=== PATIENT | female | born 1950 | race Caucasian/White ===

== ENCOUNTER → 2016-04-16 16:39 | Outpatient (CLI) | payer OTHER ==
[2013-09-22 06:19] VITALS: BMI 33.7
[~2016-04-16 16:39] MED LIST: CELEXA40 MG PO; COZAAR25 MG PO; CYMBALTA30 MG PO; HYDROCODONE-APA1 TAB PO; MOBIC7.5 MG PO; OXYCODONE HCL10 MG PO
== END | disposition home or self-care (01) ==
LOC: D.MAMMO 09:00
DX: Z85.3 Personal history of malignant neoplasm of breast (principal); Z12.31 Encounter for screening mammogram for malignant neoplasm of breast

== ENCOUNTER → 2016-05-29 16:25 | Outpatient (CLI) | payer OTHER ==
[2013-09-22 06:19] VITALS: BMI 33.7
== END | disposition home or self-care (01) ==
LOC: D.MAMMO 05-22 13:30
DX: R92.8 Other abnormal and inconclusive findings on diagnostic imaging of breast (principal)

== ENCOUNTER 2016-06-28 10:24 | Inpatient (IN) | payer OTHER ==
[~2016-06-28] VITALS: Ht 160 cm; Wt 54.4 kg
[2016-06-28] VITALS (14 sets, daily range): BP systolic 83–119; BP diastolic 46–65; BMI 21.3
--- NOTE | 2016-06-28 10:40 | NUR ---
PT ARRIVED ON UNIT VIA WHEELCHAIR WITH SON (MONICA). PT WAS A DIRECT ADMIT FROM DR YIN'S OFFICE FOR LOW H&H. PIVS SITED. ORDERS IN COMPUTER. ASSESSMENTED TO BE DOCUMENTED ON FLOWSHEET. PT HAS COMPLAINTS OF SLIGHT WEAKNESS BUT DENIES PAIN AT THIS TIME. NORMAL SINUS ON MONITOR AND BP STABLE. WILL CONTINUE TO MONITOR CLOSELY.
[2016-06-28] MEDS ORDERED: MECLIZINE HCL25 MG PO (11:02)
[2016-06-28 11:20] LABS: BASOPHILS 0.4 % (0-2); EOSINOPHILS 1.6 % (0-7); IMMATURE GRANULOCYTES 0.8 % (0-5); MCH 33.3 pg (26.0-34.0); MCHC 31.7 g/dL (31.0-37.0); MCV 105.2 fL (80.0-100.0); MONOCYTES 16.8 % (2-11); NEUTROPHILS 63.4 % (40-80); RDW 19.7 % (11.5-14.5); WBC 7.3 10x3/uL (4.8-10.8)
[2016-06-28 11:25] LABS: PLATELET COUNT 417 10x3/uL (130-400)
[2016-06-28 11:27] LABS: HEMATOCRIT 16.1 % (36.0-48.0); HEMOGLOBIN 5.1 g/dL (12-16); RBC 1.53 10x6/uL (4.00-5.40)
[2016-06-28 11:30] LABS: APTT 22.8 SECONDS (22.8-39.4); INR 0.96 (0.85-1.17); PROTIME 12.6 SECONDS (11.6-15.0)
[2016-06-28 11:46] LABS: ALBUMIN 2.9 g/dL (3.4-5.0); ANION GAP 10.6 mmol/L (8-16); BILIRUBIN - TOTAL 0.36 mg/dL (0.2-1.3); CALCIUM 8.3 mg/dL (8.5-10.1); CARBON DIOXIDE 26.3 mmol/L (21.0-32.0); POTASSIUM - SERUM 3.9 mmol/L (3.5-5.1); PROTEIN - SERUM 6.1 g/dL (6.4-8.2)
--- NOTE | 2016-06-28 12:30 | NUR ---
CONTINUING POC PER NEW ORDERS. PT WILL RECEIVE 3 UNITS OF PRBC TODAY PER ORDER. BLOOD CONSENT IN CHART
--- NOTE | 2016-06-28 14:00 | NUR ---
REARDON INSERTED PER ORDER, YELLOW URINE NOTED AND DRAINING TO GRAVITY. SCDS ON LOWER EXTREMITIES BILAT. BP LOW BUT STABLE WITH BLOOD TRANSFUSING.
[2016-06-28 14:07] LABS: APPEARANCE CLEAR (CLEAR); BILIRUBIN NEGATIVE (NEGATIVE); COLOR STRAW (YELLOW); GLUCOSE NEGATIVE (NEGATIVE); KETONE NEGATIVE (NEGATIVE); LEUKOCYTE ESTERASE NEGATIVE (NEGATIVE); NITRITE NEGATIVE (NEGATIVE); PROTEIN NEGATIVE (NEGATIVE); SPECIFIC GRAVITY 1.005 (1.005-1.020); UROBILINOGEN NORMAL (NORMAL)
--- NOTE | 2016-06-28 16:00 | NUR ---
PRBC INFUSING AND PT TOLERATING WELL. MONITORING VITAL SIGNS AND DOCUMENTED ON BLOOD FLOWSHEET. VITAL SIGNS STABLE
--- NOTE | 2016-06-28 18:00 | NUR ---
GI SAW PT AND STATES SHE WILL HAVE EGD WITH TIVA TOMORROW. PROCEDURE, ANESTHESIA, AND BLOOD CONSENTS SIGNED AND IN CHART. CLEAR LIQUID DIET ORDERED FOR DINNER AND NPO AFTER MIDNIGHT. NO CHANGES IN PT STATUS AT THIS TIME. UNIT 2/3 PRBC INFUSING AT THIS TIME. PT TOLERATING WELL.
--- NOTE | 2016-06-28 19:10 | NUR ---
SHIFT ASSESSMENT COMPLETE PER FLOWSHEET, SEE FOR DETAILS. PATIENT A&OX4, RR EVEN AND NONLABORED, ON ROOM AIR. S1S2 NOTED, NSR ON MONITOR. BOWEL SOUNDS ACTIVE X4. REARDON CATH DRAINING CLEAR YELLOW URINE TO GRAVITY. NO EDEMA NOTED, PULSES +2 BILATERAL. PIV IN RFA X2 AND LAC. ALL IVS PATENT, DRESSING C/D/I, AND NO S/S OF INFILTRATION/INFECTION. VSS, WILL MONITOR. 2000- 3RD UNIT OF PRBCS HUNG, WILL MONTIOR.
--- NOTE | 2016-06-28 21:00 | NUR ---
NIGHT MEDS GIVEN. NO VISITORS AT THIS TIME. PATIENT DENIES NEED.
--- NOTE | 2016-06-28 23:00 | NUR ---
REASSESSMENT COMPLETE, NO ACUTE CHANGES, PATIENT RESTING WELL, VSS. SEE FLOWSHEET FOR MORE DETAILS.
[2016-06-29] VITALS (17 sets, daily range): BP systolic 87–123; BP diastolic 47–83; Ht 160 cm; Wt 54.4 kg
--- NOTE | 2016-06-29 01:00 | NUR ---
PATIENT RESTING WITH EYES CLOSED. VSS.
--- NOTE | 2016-06-29 03:00 | NUR ---
REASSESSMENT COMPLETE, NO CHAGNE. VSS.
--- NOTE | 2016-06-29 05:00 | NUR ---
PATIENT SITTING UP IN BED WATCHING TV, DENIES NEED AT THIS TIME.
[2016-06-29 05:19] LABS: BASOPHILS 0.3 % (0-2); EOSINOPHILS 2.8 % (0-7); IMMATURE GRANULOCYTES 0.4 % (0-5); MCH 32.6 pg (26.0-34.0); MEAN PLATELET VOLUME 9.3 fL (7.4-10.4); MONOCYTES 20.3 % (2-11); NEUTROPHILS 54.2 % (40-80); PLATELET COUNT 355 10x3/uL (130-400); RDW 19.2 % (11.5-14.5); WBC 6.8 10x3/uL (4.8-10.8)
[2016-06-29 05:24] LABS: HEMATOCRIT 26.5 % (36.0-48.0); RBC 2.76 10x6/uL (4.00-5.40)
[2016-06-29 05:52] LABS: CARBON DIOXIDE 25.5 mmol/L (21.0-32.0); CHLORIDE - SERUM 104 mmol/L (98-107); POTASSIUM - SERUM 3.7 mmol/L (3.5-5.1); SODIUM 136 mmol/L (136-145)
[2016-06-29 06:12] LABS: % SATURATION 38 % (15-55); IRON 109 ug/dl (35-150); TOTAL IRON BIND CAPACITY 282 ug/dl (260-445); UNSAT IRON BIND CAPACITY 173 ug/dl (150-375)
[2016-06-29 06:32] LABS: CALC OSMOLALITY 269 mosm/kg (275-300); CALCIUM 7.8 mg/dL (8.5-10.1); CREATININE - SERUM 0.8 mg/dL (0.6-1.3); GLUCOSE 83 mg/dL (74-106); THYROID STIMULATING HORMONE 0.73 uIU/mL (0.36-3.74); UREA NITROGEN 9 mg/dL (7-18); eGFR NON AFRICAN AMERICAN 76 mL/min (90-120)
--- NOTE | 2016-06-29 07:00 | NUR ---
REC'D CARE OF PT. A&O X3.
--- NOTE | 2016-06-29 07:30 | NUR ---
NO ACTIVE S/S OF BLEEDING.
--- NOTE | 2016-06-29 08:49 | HP ---
PATIENT: LUPILLO NOLAN MEDICAL RECORD: [id number] ACCOUNT: [id number] LOCATION:[facility] D.[id number] : 51 ADMISSION DATE: 06/28/16 HISTORY AND PHYSICAL EXAMINATION REASON FOR ADMISSION: Dizzy, fatigued, and short of breath. HISTORY OF PRESENT ILLNESS: The patient is a 65-year-old female, alcoholic and smoker who had noticed the last 4 days some dark tarry stools. She felt lightheaded for the last week and actually decreased her losartan because of low blood pressure in the 80s systolic range. She denied nausea, vomiting or abdominal pain. She came to the office with shortness of breath and feels like she had vertigo. On exam in the office, she was pasty white, pressure was 80/64 with a heart rate of 90, and her stool was black, heme-positive. Hemoglobin was 5.1 and hematocrit was 16. She was directly admitted to the ICU for further evaluation. The patient has been compliant with taking her Celexa and Mobic for her arthritis. She also drinks 1 to 1-1/2 bottles of [place] wine at night. She has no history of varices and a previous history of GI bleeding, she states. PAST MEDICAL HISTORY: Alcoholism, bipolar disorder, ____ left knee, depression, hypertension, osteoarthritis of knees, history of psoriasis, history of breast cancer with lumpectomy in left breast for intraductal carcinoma at age 38. CURRENT MEDICATIONS: Mobic 15 mg a day, Celexa 20 mg daily, meclizine 25 mg t.i.d.; losartan 50 mg daily, she discontinued this week. ALLERGIES: LATEX, LISINOPRIL. FAMILY HISTORY: Father at 80, had transitional cell carcinoma of the bladder. Mother from CHF. SOCIAL HISTORY: She is , has 1 son living locally. She admits to smoke 1 pack a day of cigarettes for the last 40 years. She drinks 1-1/2 bottles of wine at night. She says she has not had a drink in 5 days. REVIEW OF SYSTEMS: GENERAL: She has been fatigued and short of breath. HEENT: No recent visual change, sinus congestion, sore throat or hearing difficulty. RESPIRATORY: Shortness of breath on exertion. No cough or sputum production. CARDIAC: No exertional chest pain or palpitations. She has noticed her blood pressure being in the 80-90 systolic range this week. Denies peripheral edema, previous history of chest pain or heart disease. GASTROINTESTINAL: Denies nausea, vomiting or dysphagia. She has had dark stools for 4 days without rectal or abdominal pain. He has past history of fatty liver per ultrasound. No history of varices. MUSCULOSKELETAL: Chronic arthralgias of both knees, right greater than left. NEUROLOGIC: No history of stroke, TIA, vascular headaches or seizures. PSYCHIATRIC: Admits to depression that is well controlled currently. INTEGUMENT: No rash or bruising. PHYSICAL EXAMINATION: VITAL SIGNS: Blood pressure was 80/60, heart rate is 90 and regular. She is afebrile. Her BMI is 21. Her weight is 120.8 pounds, height is 5 feet 3 HISTORY AND PHYSICAL [id number] FÉLIX NOLANBETH JEREL granados, temperature is 97.8. Sat was 90% at rest on room air. GENERAL: The patient is alert and oriented, pale-appearing, in no acute distress. Her eyes are clear. Pale palpebral conjunctivae are noted. Oropharynx unremarkable. NECK: Supple, without bruits or masses. CHEST: Distant breath sounds without wheeze or rales. HEART: Regular rate without MGR. BREASTS: She has had previous lumpectomy in left breast, there is some deformity there. Right breast is unremarkable. ABDOMEN: Soft, nontender throughout. Bowel sounds are active. RECTAL: Reveals grossly black heme-positive stool. No rectal masses. PELVIC: Deferred. EXTREMITIES: No CC&E. LABORATORY DATA: H&H is 5.1 and 16.1 with MCV of 105.2, platelet count is 417,000, white count 7300. BUN and creatinine are 13 and 1.0. GFR is 59. Glucose is 106, calcium 8.3. Liver functions are normal except for low total protein of 6.1. Sodium was 129, potassium is 3.9. Chest x-ray is pending. ASSESSMENT: 1. Symptomatic anemia of gastrointestinal blood loss. 2. Probable upper gastrointestinal bleed. 3. Alcoholism. 4. Nicotine abuse. 5. History of hypertension, currently hypotensive. 6. Osteoarthritis, on NSAIDs, this probably caused her gastrointestinal bleed. 7. Hyponatremia. 8. History of intraductal breast cancer, in remission. PLAN: The patient is admitted to the ICU directly. She will receive 3 units of packed cells when ready. Cardiac monitoring, GI consult, IV Protonix. Further workup pending clinical course. TRANSINT:[id number] Voice Confirmation ID: [id number] DOCUMENT ID: [id number] ADRIANA YIN MD at 0849 CC: [id number] DICTATION DATE: 06/28/16 140 CLUB LICENSEE: 06/28/162042 ADM IN [facility] [address] [place] [address]
--- NOTE | 2016-06-29 09:21 | NUR ---
NS 250 CC HUNG WITH BLOOD TUBING.
--- NOTE | 2016-06-29 09:32 | NUR ---
UNIT PRBC HUNG AND INITIATED.
--- NOTE | 2016-06-29 09:40 | NUR ---
GI CREW HERE.
--- NOTE | 2016-06-29 10:47 | CN ---
PATIENT NAME:LUPILLO NOLAN MEDICAL RECORD: [id number] : 52 LOCATION:[facility].2307 ADMIT DATE: 06/28/16 ACCOUNT: [id number] CONSULTING PHYSICIAN: TYRON CLAROS MD REFERRING PHYSICIAN: DOUG YIN MD DATE OF CONSULTATION: 06/28/2016 Gastroenterology Consultation REFERRING PHYSICIAN: Doug Yin MD. HISTORY OF PRESENT ILLNESS: The patient is a 65-year-old white female, who was basically admitted with symptomatic anemia with hematocrit of 15 and questionable melena over the past week or so. She has no history of peptic ulcer disease, but has been taking meloxicam recently. She also has fairly significant alcohol history from what I can tell. Her MCV is high at 105. On admission, her hematocrit was 15. She has never had any endoscopy done in the past with exception of a colonoscopy about 20 years ago that was reportedly unremarkable. She denies any abdominal pain. Interesting enough, she claims she has lost 80 pounds of weight over the past year because of poor appetite, ever since she has had ____ removed. I was asked to see the patient to rule out GI bleed. PAST MEDICAL HISTORY: As above. She also has history of depression, anxiety and remote history of breast cancer in late 80s, status post lumpectomy. PAST SURGICAL HISTORY: Remarkable for lumpectomy and tonsillectomy. ALLERGIES: LATEX. HOME MEDICATIONS: Include Celexa, oxycodone, meclizine, Meloxicam, Cozaar and Cymbalta. FAMILY HISTORY: Negative for GI disease. SOCIAL HISTORY: The patient is a longtime smoker. She also drinks quite a bit of alcohol daily. REVIEW OF SYSTEMS: Noncontributory other than in the HPI. LABORATORY DATA: Reveals a white count of 7000, hematocrit of 16, MCV of 105, platelet count 417,000. Electrolytes are normal. Her sodium 129, BUN is only 13, creatinine 1. Liver enzymes are actually unremarkable other than a low albumin at 2.9. INR is normal. UA is negative. Chest x-ray is negative. IMPRESSION: 1. Severe macrocytic anemia. Apparently, fairly acute onset of unclear etiology, rule out chronic gastrointestinal blood loss. Her microcytosis could be just due to her alcohol, but cannot rule out B12 or folate deficiency, thyroid disease also needs to be considered. She is on meloxicam, so she could definitely have peptic ulcer disease. 2. Reported history of 80-pound weight loss and poor appetite of unclear etiology, rule out underlying malignancy. RECOMMENDATION: CONSULT REPORT [id number] LUPILLO NOLAN 1. EGD in a.m. 2. Obviously avoid all NSAIDs. 3. Check a B12 and folate levels as well as TSH. 4. Might need to consider CT of the abdomen and pelvis if her EGD is negative. 5. Agree with Protonix. TRANSINT:[id number] Voice Confirmation ID: [id number] DOCUMENT ID: [id number] TYRON CLAROS MD at 1047 CC: DOUG YIN MD [id number] DICTATION DATE: 06/28/161800 ORNAMENTAL PLASTERER HELPER: 06/29/16 022 ADM IN [facility] [address] [place] [address]
--- NOTE | 2016-06-29 10:48 | NUR ---
UPPER GI COMPLETED BY DR. CLAROS.
--- NOTE | 2016-06-29 11:00 | NUR ---
RASSESSMENT COMPLETED PER FLOW SHEET. NO ACUTE CHANGES.
--- NOTE | 2016-06-29 11:10 | NUR ---
DR. CLAROS AT BEDSIDE. UPDATING AFTER EGD.
--- NOTE | 2016-06-29 14:04 | NUR ---
REARDON CATH DC'D FROM BLADDER. OOB TO CHAIR. DC' RIGHT FOREARM PIV.
--- NOTE | 2016-06-29 16:04 | NUR ---
TO BEDSIDE COMMODE. HAD SMALL BLACK TARY STOOL. INDEPENDENT RADHA CARE AND BACK TO BED.
--- NOTE | 2016-06-29 16:52 | NUR ---
I PAGD DR. CASTANEDA THRU HIS OFFICE FOR RIGHT KNEE PAIN.
--- NOTE | 2016-06-29 17:07 | NUR ---
REPORT CALLED TO JEAN-PAUL SHEPPARD AND TRANSFERING TO 2219.
--- NOTE | 2016-06-29 17:08 | NUR ---
ACCIDENTALLY PULLS OUT LEFT AC PIV.
--- NOTE | 2016-06-29 17:39 | NUR ---
STARTD 22 GUAGE PIV AT LEFT AC X1 STICK. BANANA BAG INUSING NOW AT 75CC PER SHAINA. PROTONIX CONTINUES TO INFUSE AT RIGHT HAND PIV.READY TO RANSFER VIA TO ROOM 2217.
--- NOTE | 2016-06-29 17:51 | NUR ---
TRANSFERED TO ROOM 2217 VIA .
--- NOTE | 2016-06-29 18:20 | NUR ---
PT TO ROOM 2217 FROM ICU VIA WHEELCHAIR.ASSESSMENT PER FLOW SHEET.PT WITHOUT DISTRESS.ORIENTATION TO ROOM.CALL LIGHT IN REACH
[2016-06-30] VITALS: BP 115/62; BP 142/84
[2016-06-30 04:00] VITALS: BP 133/103
[2016-06-30 05:26] LABS: BASOPHILS 0.2 % (0-2); EOSINOPHILS 2.1 % (0-7); HEMATOCRIT 30.6 % (36.0-48.0); IMMATURE GRANULOCYTES 0.4 % (0-5); LYMPHOCYTES 15.6 % (15-50); MCH 31.3 pg (26.0-34.0); MCHC 32.7 g/dL (31.0-37.0); MCV 95.6 fL (80.0-100.0); MEAN PLATELET VOLUME 9.1 fL (7.4-10.4); MONOCYTES 24.2 % (2-11); NEUTROPHILS 57.5 % (40-80); PLATELET COUNT 403 10x3/uL (130-400); RDW 18.9 % (11.5-14.5); WBC 8.3 10x3/uL (4.8-10.8)
[2016-06-30 05:59] LABS: C-REACTIVE PROTEIN 4.4 mg/dL (0.0-0.9); CALC OSMOLALITY 273 mosm/kg (275-300); CALCIUM 7.4 mg/dL (8.5-10.1); CHLORIDE - SERUM 106 mmol/L (98-107); CREATININE - SERUM 0.8 mg/dL (0.6-1.3); GLUCOSE 93 mg/dL (74-106); POTASSIUM - SERUM 3.7 mmol/L (3.5-5.1); SODIUM 138 mmol/L (136-145); UREA NITROGEN 7 mg/dL (7-18); eGFR NON AFRICAN AMERICAN 76 mL/min (90-120)
--- NOTE | 2016-06-30 06:23 | NUR ---
ASSESSED AT THE BEGINNING OF THE SHIFT. PT IS ALERT AND ORIENTED, ABLE TO VERBALIZE NEEDS. SHE WAS HAVING KNEE PAIN THAT THE ULTRAM SHE TOOK EARLIER WAS NOT HELPIN. DR CASTANEDA WAS CALLED AND A LANGLOIS ORDER WAS RECEIVED. THIS HAS HELPED HER MORE. SHE REQUESTED ATIV[facility] AND HER SLEEPING PILL AT AND FROM THEN ON EXCEPT TO USE THE BEDPAN TO VOID SHE HAS SLEPT THE NIGHT,. THIS MORNING SHE WAS ASSISTED UP TO THE BATHROOM TO VOID WITH A WALKER AND DID WELL BUT STILL WILL NEED ASSIST. THE BED IS LOW, RAILS UP X'S 2 WITH THE CALL LIGHT AT HAND.
[2016-06-30 06:27] LABS: ERYTHROCYTE SEDIMENTATION RATE 14 mm/hr (0-30)
--- NOTE | 2016-06-30 08:42 | NUR ---
SCHEDULED MEDICATIONS ADMINISTERED AT THIS TIME WELL PRN NORCO-5 FOR RIGHT KNEE PAIN 08/26. ASSESSMENT PERFORMED PER FLOWSHEET. AALIYAH MAT ALARM IN USE FOR FALL PRECAUTIONS. CALL LIGHT IN REACH AND SRX2 WITH BED IN LOWEST POSITION AND WHEELS LOCKED. WILL CONTINUE WITH PLAN OF CARE.
[2016-06-30 09:06] VITALS: BP 117/58
--- NOTE | 2016-06-30 09:30 | NUR ---
ASSISTED PT UP TO THE BATHROOM WITH STANDBY ASSIST AND USE OF WALKER. PT HAD SMALL BM THAT WAS FORMED AND BROWN IN COLOR WITH NO EVIDENCE OF BLOOD. ASSISTED PT BACK TO BED WITH CALL LIGHT IN REACH. DENIES FURTHER NEEDS AT THIS TIME. WILL CONTINUE WITH PLAN OF CARE.
--- NOTE | 2016-06-30 10:47 | PRO ---
PATIENT:LUPILLO NOLAN MEDICAL RECORD: [id number] : 52 LOCATION:[facility] ADMISSION DATE: 06/28/16 PROCEDURE PERFORMED BY: TYRON CLAROS MD DATE OF PROCEDURE: 06/29/2016 PROCEDURE: EGD with biopsy. INDICATION: The patient is a 65-year-old white female with history of alcohol use, as well as NSAID use, basically was admitted with 1-week of reported melena, hematocrit of 16, MCV of 105, BUN of 13 and reported weight loss of about 80 pounds over the past year or two. She denies any abdominal pain. She does complain of ____ and poor appetite. Hematocrit up to 26 after 3 units of blood, retic count of 10 and platelet count is 400,000. INR is normal. Iron saturation is normal at 38%. TSH is normal. Liver enzymes are normal other than an albumin of 2.9. She is now for EGD. PREMEDICATION: Taper anesthesia. INSTRUMENT: Olympus video gastroscope. FINDINGS: The endoscope was passed through the oropharynx to the second portion of the duodenum without difficulty. The esophagus was normal. She had no varices. There was no hiatal hernia present. The stomach was entered and was remarkable for mild to moderate erosive antral gastritis, but ____ stigmata of recent bleeding there. A biopsy obtained from the stomach to rule out H. pylori by means of histology. The duodenum was entered and was remarkable for a small to moderate sized 1-1.5 cm ulceration in the proximal second portion of the duodenum with 2 tiny flat pigmented spots, but no visible vessel. This was on the anterior wall. The rest of the duodenum was normal. I did not feel any intervention was necessary. There was no blood in the stomach or duodenum at all. The patient tolerated the procedure well without any complication. IMPRESSION: 1. Small to moderate sized duodenal ulcer with stigmata of recent bleeding, most likely NSAID induced. No intervention was needed. 2. Mild to moderate erosive antral gastritis, also probably due to NSAID, status post biopsy. 3. Otherwise, normal EGD. RECOMMENDATIONS: 1. Regular diet. 2. Protonix 40 mg p.o. b.i.d. for 2 months, then q.a.m. indefinitely. 3. Follow up biopsy results. 4. Weight loss continues despite the above, consider CT of the abdomen. 5. Okay to discharge to home from a GI standpoint. 6. ____ no more NSAID whatsoever. TRANSINT:[id number] Voice Confirmation ID: [id number] DOCUMENT ID: [id number] PROCEDURE NOTE [id number] LUPILLO NOLAN JOHN MD at 1047 CC: ADRIANA YIN MD [id number] DICTATION DATE: 06/29/16 1058 FLASH DRIER OPERATOR: 06/30/16 0031 ADM IN [facility] [address] [place] [address]
--- NOTE | 2016-06-30 11:15 | NUR ---
PRN ULTRAM ADMINISTERED FOR BREAK THROUGH PAIN 7/10 IN RIGHT KNEE AT THIS TIME. DENIES FURTHER NEEDS AT PRESENT TIME. CALL LIGHT IN REACH, WILL CONTINUE WITH PLAN OF CARE.
[2016-06-30 11:48] VITALS: BP 110/62
[2016-06-30] MEDS ORDERED: PROTONIX40 MG PO (12:38)
[2016-06-30] MEDS ORDERED: HYDROCODON-ACE1 EAC7 PO (12:39)
--- NOTE | 2016-06-30 12:45 | NUR ---
VOICEMAIL LEFT FOR MONICA NOLAN, PT'S SON, AT [phone]. EXPLAINED TO PT THAT VOICEMAIL WAS LEFT AND SHE VERBALIZED UNDERSTANDING.
--- NOTE | 2016-06-30 13:30 | NUR ---
SPOKE WITH PT'S SON, MONICA AT [phone] PER PT'S REQUEST AND LET HIM KNOW THAT HIS MOTHER WAS BEING DISCHARGED. HE VERBALIZED UNDERSTANDING AND SAID HE WOULD BE UP TO GET HER SOON. LET PT KNOW OF THIS INFORMATION AND SHE VERBALIZED UNDERSTANDING.
--- NOTE | 2016-06-30 14:25 | NUR ---
DISCHARGE PAPERWORK REVIEWED WITH PT AND IV TO RIGHT WRIST AND LEFT AC D/C WITH CATH TIP INTACT. ORDER RECEIVED FOR WALKER PER DR CASTANEDA DUE TO PATIENT BEING VERY UNSTEADY WITH AMBULATION. WILL FAX APPROPRIATE PAPERWORK TO COMPANY. PT'S SON WHEELING HER AROUND HOSPITAL WHILE SHE WAITS ON THE WALKER.
--- NOTE | 2016-06-30 14:25 | NUR ---
ORDER RECEIVED FOR WALKER. PATIENT READY FOR DISCHARGE. CALL TO MICKY LEI. REQUESTED DOCUMENTATION FAXED TO [facility]. AWAITING RESPONSE.
--- NOTE | 2016-06-30 14:28 | NUR ---
CALL RECEIVED FROM CM. [facility] TO DELIVER WALKER TO PATIENT PRIOR TO DISCHARGE.
--- NOTE | 2016-06-30 15:00 | NUR ---
ANNELISE DELIVERED TO PATIENT ROOM BY [facility].
--- NOTE | 2016-06-30 15:15 | NUR ---
WALKER DELIVERED AND PT D/C HOME WITH SON AT THIS TIME.
[2016-07-01 09:09] LABS: HAPTOGLOBIN 96 mg/dL (34-200)
[2016-07-01 12:43] LABS: FOLATE (FOLIC ACID) - SERUM >20.0 ng/mL (>3.0)
== END 2016-06-30 15:15 | disposition home or self-care (01) | DRG 378 ==
LOC: D.ICU 10:24 → D.MS 06-29 18:08
PROVIDERS: Internal Medicine Gastroenterology; ADMIT Family Medicine
PROC: 0DB68ZX Excision of Stomach, Via Natural or Artificial Opening Endoscopic, Diagnostic (ICD-10-PCS; principal; 2016-06-29 10:00)
DX: K26.4 Chronic or unspecified duodenal ulcer with hemorrhage (principal); D62 Acute posthemorrhagic anemia; E87.1 Hypo-osmolality and hyponatremia; D53.9 Nutritional anemia, unspecified; K29.70 Gastritis, unspecified, without bleeding; I95.1 Orthostatic hypotension; K70.0 Alcoholic fatty liver; F10.20 Alcohol dependence, uncomplicated; T39.395A Adverse effect of other nonsteroidal anti-inflammatory drugs [NSAID], initial encounter; R63.4 Abnormal weight loss; F31.9 Bipolar disorder, unspecified; M17.0 Bilateral primary osteoarthritis of knee; Z68.21 Body mass index [BMI] 21.0-21.9, adult; F17.200 Nicotine dependence, unspecified, uncomplicated

== ENCOUNTER → 2016-07-03 12:24 | Outpatient (CLI) | payer OTHER ==
[2016-06-29 10:30] VITALS: BMI 21.2
[~2016-07-03 12:24] MED LIST changes: +HYDROCODON-ACE1 EAC7 PO; +MECLIZINE HCL25 MG PO; +PROTONIX40 MG PO
== END | disposition home or self-care (01) ==
LOC: D.US 12:24
DX: R60.0 Localized edema (principal); M79.604 Pain in right leg

== ENCOUNTER → 2020-07-08 19:24 | Outpatient (CLI) | payer MEDICARE ==
[2016-06-29 10:30] VITALS: BMI 21.2
[2020-07-08 20:16] LABS: BASOPHILS 1.8 % (0-2); EOSINOPHILS 2.4 % (0-7); HEMATOCRIT 34.1 % (36.0-48.0); HEMOGLOBIN 11.2 g/dL (12-16); LYMPHOCYTES 12.1 % (15-50); MCH 33.1 pg (26.0-34.0); MCHC 32.7 g/dL (31.0-37.0); MCV 101.3 fL (80.0-100.0); MEAN PLATELET VOLUME 8.3 fL (7.4-10.4); NEUTROPHILS 71.7 % (40-80); RBC 3.37 10x6/uL (4.00-5.40); RDW 17.1 % (11.5-14.5); WBC 4.4 10x3/uL (4.8-10.8)
[2020-07-08 20:29] LABS: PLATELET COUNT 290 10x3/uL (130-400)
[2020-07-08 20:33] LABS: ALBUMIN 2.9 g/dL (3.4-5.0); ALKALINE PHOSPHATASE 100 U/L (30-120); ALT (SGPT) 28 U/L (10-68); BILIRUBIN - TOTAL 0.28 mg/dL (0.2-1.3); CALC OSMOLALITY 274 mosm/kg (275-300); CALCIUM 8.7 mg/dL (8.5-10.1); CARBON DIOXIDE 26.1 mmol/L (21.0-32.0); CHLORIDE - SERUM 105 mmol/L (98-107); CHOL - HDL RATIO 2.4 ratio (2.3-4.1); CHOLESTEROL, TOTAL 144 mg/dL (0-200); CREATININE - SERUM 0.7 mg/dL (0.6-1.3); GLUCOSE 75 mg/dL (74-106); HDL CHOLESTEROL 61 mg/dL (32-96); LDL CHOLESTEROL 70 mg/dL (0-100); LDL-HDL RATIO 1.1 ratio (1.5-3.5); POTASSIUM - SERUM 4.1 mmol/L (3.5-5.1); PROTEIN - SERUM 5.8 g/dL (6.4-8.2); SODIUM 140 mmol/L (136-145); TRIGLYCERIDE 69 mg/dL (30-200); UREA NITROGEN 5 mg/dL (7-18); eGFR NON AFRICAN AMERICAN 88 mL/min (90-120)
== END | disposition home or self-care (01) ==
LOC: D.LABREF 19:24
PROVIDERS: ATTEND Family Medicine
DX: M06.4 Inflammatory polyarthropathy (principal); E78.5 Hyperlipidemia, unspecified; Z79.899 Other long term (current) drug therapy

== ENCOUNTER → 2020-07-12 18:53 | Outpatient (CLI) | payer MEDICARE ==
[2016-06-29 10:30] VITALS: BMI 21.2
== END | disposition home or self-care (01) ==
LOC: D.LABREF 18:53
PROVIDERS: ATTEND Family Medicine
DX: E55.9 Vitamin D deficiency, unspecified (principal)

== ENCOUNTER → 2020-07-16 13:42 | Outpatient (CLI) | payer MEDICARE ==
[2016-06-29 10:30] VITALS: BMI 21.2
[2020-07-16 14:46] LABS: BILIRUBIN NEGATIVE (NEGATIVE); KETONE NEGATIVE (NEGATIVE); NITRITE NEGATIVE (NEGATIVE); UROBILINOGEN NORMAL mg/dL (< 2); WHITE CELLS - URINE 0-5 HPF (0-4)
[2020-07-16 14:47] LABS: BACTERIA MODERATE HPF (NONE SEEN); SQUAMOUS EPITHELIAL 0-5 HPF (0-4)
== END | disposition home or self-care (01) ==
LOC: D.LABREF 13:42
PROVIDERS: ATTEND Family Medicine
DX: R41.82 Altered mental status, unspecified (principal)

== ENCOUNTER → 2020-07-18 22:09 | Outpatient (CLI) | payer MEDICARE ==
[2016-06-29 10:30] VITALS: BMI 21.2
[2020-07-18 22:34] LABS: BILIRUBIN NEGATIVE (NEGATIVE); KETONE NEGATIVE (NEGATIVE); NITRITE NEGATIVE (NEGATIVE); UROBILINOGEN NORMAL mg/dL (< 2)
== END | disposition home or self-care (01) ==
LOC: D.LABREF 22:09
PROVIDERS: ATTEND Family Medicine
DX: N39.0 Urinary tract infection, site not specified (principal)